=== PATIENT | female | born 1980 | race Caucasian/White ===

== ENCOUNTER → 2020-10-24 | Outpatient (CLI) | payer OTHER ==
[2020-10-25 07:11] LABS: VITAMIN D, 25-HYDROXY 5.5 ng/mL (30.0-100.0)
[2020-10-25 08:14] LABS: HBSAG SCREEN Negative (Negative)
[2020-10-26 00:07] LABS: CCP ANTIBODIES IGG/IGA 6 units (0-19)
[2020-10-30 16:15] LABS: HEP B CORE AB, TOT Negative (Negative)
[2020-10-31 07:40] LABS: HCV AB 8.7 (0.0-0.9)
== END ==
LOC: LAB 11:49
PROVIDERS: Nurse Practitioner Family
DX: Z11.59 Encounter for screening for other viral diseases (principal); D89.9 Disorder involving the immune mechanism, unspecified; M25.50 Pain in unspecified joint; R76.8 Other specified abnormal immunological findings in serum
CPT/HCPCS: 36415; 81001; 82550; 82570; 83520; 84156; 86140; 86200; 86704; 86803; 87340